=== PATIENT | female | born 1985 | race American Indian/Alaskan Native ===

== ENCOUNTER 2019-07-30 14:25 | Emergency (ER) | payer SELFPAY ==
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
== END 2019-07-30 15:55 | disposition home or self-care (01) ==
LOC: JD.ED 14:25
DX: F15.90 Other stimulant use, unspecified, uncomplicated (principal)
CPT/HCPCS: 36415; 80053; 80306; 83735; 85025; 99282; 99284; G0480